=== PATIENT | male | born 2000 | race Two or more races ===

== ENCOUNTER 2022-02-02 18:42 | Emergency (ER) | payer BC ==
[2022-02-02] MEDS ORDERED: TETRACAINE 0.5% HCL 0.6ML DROPPER.BOTTLE OS ONE (18:47)
[2022-02-02] MEDS ORDERED: FLUORESCEIN NA 1 EA STRIP OS ONE (18:47)
[2022-02-02] MEDS ORDERED: TETRACAINE 0.5% OPHTH SOLN 2 ML BOTTLE ONE (18:49)
[2022-02-02] MEDS ORDERED: TOBRAMYCIN 0.3% OPHTH SOLN 5 ML BOTTLE OS ONE (19:01)
[2022-02-02] MEDS ORDERED: TOBRAMYCIN 0.3% OPHTH SOLN 5 ML BOTTLE ONE (19:01)
[2022-02-02 19:14] VITALS: BP 124/74; PULSE 82; TEMP 99.2; BMI 25.1
[2022-02-04] MEDS ORDERED: ACETAMINOPHEN 500 MG TABLET (FP) ONE (07:10)
== END 2022-02-02 19:20 | disposition home or self-care (01) ==
LOC: FER 18:42
DX: T15.82XA Foreign body in other and multiple parts of external eye, left eye, initial encounter (principal)
CPT/HCPCS: 99283-25